=== PATIENT | male | born 1970 | race Two or more races ===

== ENCOUNTER 2023-12-05 09:26 | Outpatient (REF) | payer OTHER, SELFPAY ==
[2023-12-05 11:49] LABS: Anion Gap 16 (12-20); Blood Urea Nitrogen 13 mg/dL (9-16); Calcium 9.6 mg/dL (8.4-10.2); Carbon Dioxide 29 mmol/L (22-29); Chloride 103 mmol/L (96-108); Estimated Glomerular Filt Rate > 60; Glucose Random 121 mg/dL (60-115); Potassium 4.6 mmol/L (3.3-5.1); Sodium 143 mmol/L (135-145)
[2023-12-05 11:59] LABS: T4 Thyroxine 5.7 ug/dL (4.5-12.0); Thyroid Stimulating Hormone 2.13 uIU/mL (0.32-4.0)
[2023-12-05 12:14] LABS: Folate 10.6 ng/mL (> or = 4.0); Vitamin B12 491 pg/mL (200-900)
== END 2023-12-05 09:27 | disposition home or self-care (01) ==
LOC: HO.LAB 09:26
PROVIDERS: Visit Provider Psychiatry & Neurology Neurology
DX: G47.00 Insomnia, unspecified (principal)
CPT/HCPCS: 36415; 80048; 82607; 82746; 84436; 84443

== ENCOUNTER 2024-05-11 15:07 | Outpatient (RCR) | payer OTHER, SELFPAY ==
[2024-04-22 08:11] VITALS: BP 135/66; PULSE 97
--- NOTE | 2024-04-22 08:58 | MHC.PT.EP ---
[facility] [place] Office [place] Office [place] Office [address] Mary Hutchinson [address] [phone] F: [phone] F: [phone] F: [phone] F: [phone] Physical Therapy Plan of Care Date of Evaluation: 04/22/24 Date of Surgery: NA Diagnosis: Vestibular therapy BPPV Assessment: Zeus is a 53 year old male who is referred to PT for vestibular therapy for otolith repositioning, BPPV . He reports of having symptoms of dizziness for about 1 year. He describes it as spinning and it is present with looking up or down, rolling in bed, getting and out of bed, driving and dancing. His symptoms last for a few seconds. He denies having nausea. On PT examination he present with intact saccades, smooth pursuit, visual tracking, negative head thrust and negative VBI. He was positive for BPPV in [place]- only dizziness present no nystagmus noted. He lives with his and is independent with all ADLS but moves carefully due to dizziness. He works as a medical sales associate. He would benefit from skilled PT to address the aforementioned impairments and improve tolerance to functional activities. Frequency and Duration: The patient will be seen 2/week for 4 weeks Short Term Goals: Group Home Goals: Patient to be educated on symptoms and indications to return to therapy when needed min 4 weeks. Pt will be negative for nystagmus or reports of vertigo in all diagnostic positions bilaterally to resolution of BPPV in 4 weeks. Patient to be able to functionally move in all planes and directions without provocation of dizziness to show return to PLOF in 4 weeks. Treatment Plan: Modalities to reduce pain, spasms and effusion. Manual therapy to restore motion and function. Therapeutic exercise to improve strength and flexibility. Neuromuscular re-education for posture and balance. Therapeutic activities to return to functional activities of daily living. Electronically signed by: Allison Melgoza PT DPT Please sign and return to therapist. Thank you for your referral.
--- NOTE | 2024-06-17 08:36 | MHC.PT.DC ---
[facility] [place] [facility] [place] Office [place] Office [address] Mary Hutchinson [address] [phone] F: [phone] F: [phone] F: [phone] F: [phone] Physical Therapy Discharge Report Diagnosis: Vestibular therapy BPPV Date of Surgery: NA Date of Evaluation: 04/22/24 Date of Discharge: 06/17/24 Treatments to Date: 2 Cancellations to Date: 0 No Shows to Date: Discharge Status: Patient Elected to Stop Discharge Summary: Zeus canceled his last few appointments and d/c himself from PT stating that he does not want to continue PT until his follow up with ENT and neurology. Electronically signed by: Allison Melgoza, PT DPT Please sign and return to therapist. Thank you for your referral.
== END 2024-06-17 08:36 | disposition home or self-care (01) ==
LOC: HO.PT 15:07
PROVIDERS: PCP Family Medicine; Visit Provider Psychiatry & Neurology Neurology
DX: H81.10 Benign paroxysmal vertigo, unspecified ear (principal)
CPT/HCPCS: 95992; 97112; 97161